=== PATIENT | female | born 1935 | race Caucasian/White ===

== ENCOUNTER → 2018-12-08 | Outpatient (CLI) | payer MEDICARE, OTHER ==
--- NOTE | 2018-12-08 14:23 | XR ---
EXAMINATION TYPE: XR chest 2V DATE OF EXAM: 12/08/2018 COMPARISON: NONE TECHNIQUE: PA and lateral views submitted. HISTORY: Shortness of breath FINDINGS: The lungs are clear and there is no pneumothorax, pleural effusion, or focal pneumonia. There is a retrocardiac air density which may be related to a large hiatal hernia. Numerous compression fracture s, diffuse osteopenia and degenerative changes of the visualized vertebral column. Surgical clips are seen in the abdomen. No overt failure. Biapical pleural thickening. IMPRESSION: 1. No acute process.
[2018-12-08 16:04] LABS: Albumin 4.5 g/dL (3.5-5.0); Calcium 10.2 mg/dL (8.4-10.2); Potassium 4.1 mmol/L (3.5-5.1); Total Protein 7.5 g/dL (6.3-8.2)
== END | disposition home or self-care (01) ==
LOC: RADXRMAIN 14:00
PROVIDERS: ATTEND Internal Medicine Interventional Cardiology
DX: R06.09 Other forms of dyspnea (principal)
CPT/HCPCS: 36415; 71046; 80053; 83880

== ENCOUNTER → 2019-04-07 | Outpatient (CLI) | payer MEDICARE, OTHER ==
[2019-04-07 11:10] VITALS: BP 164/70; PULSE 76; RESP 18
--- NOTE | 2019-04-07 14:15 | P.PAINCN ---
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, and 2014 patient had the radiofrequency thermocoagulation of the median branch lumbar area and she had good pain relief until July 2018, and from that time she started complaining of severe low back pain, she is able to ambulate using cane, she feels some weakness in the lower extremity bilaterally, but she is able to ambulate using a cane, she denies any change in the bowel movements or urination, she denies any fever or night sweats she denies any change in the bowel movements or urination, patient continued to use [place] 5/325 and CPD only and she had minimal benefit from the medication Past Medical History Past Medical History: Hyperlipidemia, Hypertension Additional Past Medical History / Comment(s): Angina; glaucoma; hx of GERD History of Any Multi-Drug Resistant Organisms: None Reported Past Surgical History: Cholecystectomy, Heart Catheterization, Hysterectomy Additional Past Surgical History / Comment(s): Dilitation of esophagus - 2011 Past Anesthesia/Blood Transfusion Reactions: No Reported Reaction Smoking Status: Never smoker Medications and Allergies Home Medications Medication Instructions Recorded Confirmed Type Aspirin EC [Ecotrin Low Dose] 81 tab PO DAILY 07/07/13 04/07/19 History Isosorbide Mononitrate [Imdur] 30 mg PO DAILY 07/07/13 04/07/19 History Acetaminophen [Tylenol] 325 mg PO Q4H PRN 04/05/19 04/07/19 History Atenolol 25 mg PO DAILY 04/05/19 04/07/19 History Atorvastatin [Lipitor] 10 mg PO DAILY 04/05/19 04/07/19 History Cannabidiol (Cbd) Extract 1 appful PO DIRECTED PRN 04/05/19 04/07/19 History [Epidiolex] Hydrocodone/Acetaminophen [[place] 0.5 tab PO Q6HR PRN 04/05/19 04/07/19 History 5-325] Allergies Allergy/AdvReac Type Severity Reaction Status Date / Time No Known Allergies Allergy Verified 02/10/20 15:13 Physical Exam Vitals: Vital Signs Pulse Resp BP Pulse Ox 04/07/19 11:02 76 18 164/70 95 REVIEW OF ORGAN SYSTEMS: CONSTITUTIONAL: No fevers or chills. No recent weight loss. EYES: denies troubles with vision. HEENT: No difficulties with hearing. No nosebleeds. No difficulty swallowing. RESPIRATORY: Denies any troubles with breathing or dyspnea on exertion. CARDIOVASCULAR: Denies any chest pain, palpitations, or recent heart attacks. GASTROINTESTINAL: Denies fatty food intolerance. Has change in bowel habits and gas bloat. GENITOURINARY: Denies any blood in urine. Has increased urinary frequency. NEUROLOGICAL: Low back pain , No seizure disorders or headaches. MUSCULOSKELETAL: Has back pain. SKIN:no skin cancer. No rash. PSYCHIATRIC: Denies current depression or suicidal thoughts. ENDOCRINE: Denies current thyroid disorders. Denies any blood sugar glucose intolerance. HEME/LYMPHATIC: Denies any lumps and bumps around the neck. History of deep venous thrombosis. ALLERGY/IMMUNOLOGY: No immunoglobulin therapy. No immune deficiencies. BREAST: Denies current breast lumps, pain or nipple discharge. Physical Examinations : Constitutiona : Cooperative , not in acute distress . HEENT : nech : supple , no Lymphadenopathy , normal thyroid size . : eyes no ptosis , no icterus, no photophobia . : ENT normal of hearing , normal oropharynx , no Thrush . Respiratory : Chest clear to auscultations Bilaterally , no wheezing , no Rhonchi . Cardiovascula : regular rate and rhythem , S1 , S2 , no S3 , no S4. Gastrointestina : abdomen soft no tenderness , bowel sounds , no organomegally . Genitourinary : Defferred . neurologic : Cranial nerve II to XII intact , no focal neurological deffecit . psychatric : alert , oriented X 3 , appropriate affect , intact judgment and insight . Lymphatic : no Lymphadenopathy . musculoskeltal : Lumber spine moter stegnth lower extremities ,thigh and legs 4/5 Right side , 4/5 Left side deep tendon reflexes : normal Knee Jerk , normal ankle Jerk lumber facet Loading Test= positive Right , positive Left Range of motion of the lumbar spine Flexion 30 degrees, extension 10 degrees strait leg raising test = negative bilaterally Fabere test= negative bilaterally Sever tenderness over the Sacroiliac joint on the Right , and Left sides Multiple trigger points identified in the lumbar paraspinal muscles bilaterally. Results Comments: MRI of the lumbar spine= multiple compression fractures in the lumbar spine, lumbar degenerative disc disease Assessment and Plan Plan: Assessment and plan= chronic severe low back pain secondary to multifactorial causes 1-lumbar degenerative disc disease. 2-lumbar compression fractures. 3-lumbar spondylosis with lumbar facet arthropathy. 4-bilateral sacroiliitis. 5-myofascial pain syndrome and lumbar paravertebral muscles. 6-failed Back surgery syndrome and lumbar area. Patient could benefit from caudal epidural steroid injections under fluoroscopy guidance and the same time can do trigger point injection lumbar paraspinal muscles(multiple ) Time with Patient: Greater than 30 PQRS Measure Charge Sheet Measure #130: Documentation of Current Meds in Medical Chart: Patient's medications documented in chart Measure #226: Tobacco Use: Screen & Cessation Intervention: Pt not a tobacco user Measure #111: Pneumonia Vaccination: Pneumococcal vaccine administered or previously received Measure #47: Advance Care Plan: Advance care planning discussed & documented, pt chose/unable to give Measure #412: Opioid Treatment Agreement: No documentation of signed opioid treatment agreement Measure #408: Opioid Therapy Follow-up Evaluation: Patient had NO f/u eval minimum every 3 months during opioid therapy Measure #317: Preventitive Care & Scrn High Bld Press & F/U: Pre-hypertensive or hypertensive BP documented, pt will f/u with PCP Measure #128: Body Mass Index (BMI) Screening & Follow-up: BMI documented within normal parameters Measure #131: Pain Assessment & Follow-up: Pain positive & plan documented, Follow-up scheduled Measure #431: Unhealthy Alcohol Use Preventative Care & Scrn: Patient not identified as an unhealthy alcohol user PQRS Narrative: Smoking Status Never smoker Narcotic Agreement Date Signed 07/21/13 Blood Pressure 164/70 Pain Intensity [Back] 6 Scale Used Numeric (1 - 10) Home Medications: Ambulatory Orders Aspirin EC [Ecotrin Low Dose] 81 tab PO DAILY 07/07/13 Isosorbide Mononitrate [Imdur] 30 mg PO DAILY 07/07/13 Acetaminophen [Tylenol] 325 mg PO Q4H PRN 04/05/19 Atenolol 25 mg PO DAILY 04/05/19 Atorvastatin [Lipitor] 10 mg PO DAILY 04/05/19 Cannabidiol (Cbd) Extract [Epidiolex] 1 appful PO DIRECTED PRN 04/05/19 Hydrocodone/Acetaminophen [[place] 5-325] 0.5 tab PO Q6HR PRN 04/05/19
== END | disposition home or self-care (01) ==
LOC: PNWHC3 10:49
PROVIDERS: ATTEND Specialist
DX: G89.29 Other chronic pain (principal); M51.36 Other intervertebral disc degeneration, lumbar region; M47.816 Spondylosis without myelopathy or radiculopathy, lumbar region; M46.96 Unspecified inflammatory spondylopathy, lumbar region; M48.56XA Collapsed vertebra, not elsewhere classified, lumbar region, initial encounter for fracture; M46.1 Sacroiliitis, not elsewhere classified; M79.18 Myalgia, other site; M96.1 Postlaminectomy syndrome, not elsewhere classified; Z79.82 Long term (current) use of aspirin; Z79.899 Other long term (current) drug therapy
CPT/HCPCS: 99211

== ENCOUNTER → 2019-04-13 | Day surgery (SDC) | payer MEDICARE, OTHER ==
[2019-04-09 11:05] VITALS: BMI 24.3
[~2019-04-13] MED LIST: BUPIVACAINE (PF) 0.5% 30 ML VIAL ONE; IOPAMIDOL M200 10 ML VIAL ONE; IV FLUID CONTINUATION 1,000 ML IV ONE; LACTATED RINGERS 1,000 ML IV ONE; LIDOCAINE 1% 20 ML VIAL (10MG/ML) FOR IV START INTRADERMA ONE; MIDAZOLAM 2 MG/2 ML VIAL ONE; fentaNYL (PF) 50 MCG/ML 2 ML AMP ONE; methylPREDNISolone ACETATE 40 MG/ML 1 ML VIAL ONE
[2019-04-13 10:16] VITALS: TEMP 97.9
--- NOTE | 2019-04-13 10:24 | P.PCN ---
Date of Procedure: 04/13/19 Description of Procedure: PREOP DIAGNOSIS: Lumbar radiculopathy POSTOP DIAGNOSIS: Lumbar radiculopathy PROCEDURE: Caudal epidural steroid injection with epidurolysis and epidurogram under fluoroscopic guidance Imaging: Fluoroscopy was used, images where saved to the medical record ANESTHESIA: Local with 1% lidocaine 5 ml ; IV sedation with versed and fentanyl PROCEDURE INDICATION: The patient with post-laminectomy syndrome with low back pain and radiculopathy radiating down in both legs, here for a caudal epidural steroid injection with epidurolysis. PROCEDURE DESCRIPTION: The patient was seen and identified in the preoperative area. Risks, benefits, complications, and alternatives were discussed with the patient. The patient agreed to proceed with the procedure and signed the consent. IV was started, and vital signs were stable. Patient was taken to the OR and time out was completed. The patient was placed in the prone position on procedure table and a pillow was placed under the abdomen to reduce lumbar lordosis. The lumbosacral area was prepped and draped in the usual sterile fashion. Vital signs were closely monitored during the procedure. Lateral view and the anterior-posterior plates of the sacrum were identified with infiltration of the area overlying the sacral hiatus with 1% lidocaine. A 17 gauge epidural needle was used to advance through the sacral hiatus into the caudal epidural space. Omnipaque 180 dye 2cc was injected and the position of the needle was verified to be in the midline. A Racz catheter was introduced into the epidural space and was advanced towards the L5-S1 interspace under direct fluoroscopic guidance. Multiple passes were made with the catheter for lysis of epidural adhesions avoiding parasthesia and significant resistance. After epidurolysis was complete, 2cc of contrast dye was again used to evaluate spread of contrast. Contrast was spreading beyond the original level prior to epidurolysis to the level of the L4-L5 level. After negative aspiration, I injected a solution consisting of 40mg of Depo- Medrol, 2ml of Preservative free normal saline and 2ml of ropivacaine 0.5% for a total of 5ml. Additional spread was seen to L4-L5 under fluoroscopy. The needle and the catheter were withdrawn intact. Epidurogram findings: Omnipaque 180 mg dye 2 ml was injected with spread of the dye into the caudal epidural space and with spread cutoff at L5 prior to epidurolysis. Post epidurolysis dye 2 ml was injected and spread was seen to the L4-L5 level COMPLICATIONS: None. DISPOSITION / PLANS: The patient was placed in a supine position and transferred to the recovery area in a stable condition for observation and was discharged from the recovery room after meeting discharge criteria. Home discharge instructions given to the patient by the staff. The patient was reexamined prior to discharge. The patient will schedule a follow up as directed
--- NOTE | 2019-04-13 10:26 | P.PCN ---
Date of Procedure: 04/13/19 Description of Procedure: Preoperative Diagnosis: myofascial pain syndrome of the lumbar spine Postoperative diagnosis: Same Anesthesia: Local Surgeon: Rissa Sylvester MD Indications for procedure: This is a 83-year-old patient with myofascial pain and palpable trigger points in the lumbar muscles. The patient consents for an injection after an explanation of risks including but not limited to bleeding and infection, benefits, and alternatives and the patient has signed a consent form indicating understanding of all of them. Description of procedure: After informed consent was obtained the patient's painful area was sterilely prepped in the usual fashion with ChloraPrep. Lumbar trigger points were identified via palpation of the lumbar paraspinal muscles and marked sterilely. Each trigger point was injected with a 25-gauge one and a half inch needle. At that point a solution consisting of 9ml of 0.5% ropivacaine was distributed evenly over the trigger points. The patient's vital signs were stable afterwards and the procedure was tolerated well. Patient was discharged home with follow-up instructions.
[2019-04-13 11:06] VITALS: RESP 20
[2019-04-13 11:15] VITALS: BP 134/67; PULSE 60
--- NOTE | 2019-04-13 11:29 | FL ---
EXAMINATION TYPE: FL guided pain mgmt statistic DATE OF EXAM: 04/13/2019 HISTORY: Fluoroscopy time 5 seconds of fluoroscopy provided. IMPRESSION: 1. Fluoroscopy time.
== END ==
LOC: ORPAIN 09:38
PROVIDERS: ATTEND Hospitalist
DX: G89.29 Other chronic pain (principal); M79.18 Myalgia, other site; M54.16 Radiculopathy, lumbar region; M96.1 Postlaminectomy syndrome, not elsewhere classified; Z79.899 Other long term (current) drug therapy; I10 Essential (primary) hypertension; E78.5 Hyperlipidemia, unspecified; H40.9 Unspecified glaucoma; K21.9 Gastro-esophageal reflux disease without esophagitis; G96.12 Meningeal adhesions (cerebral) (spinal); Z90.49 Acquired absence of other specified parts of digestive tract; Z90.710 Acquired absence of both cervix and uterus; Z98.890 Other specified postprocedural states; Z79.82 Long term (current) use of aspirin; Z79.891 Long term (current) use of opiate analgesic
CPT/HCPCS: 62323; 20553; 62264; J2250; J1030; J3010; Q9966; 99152

== ENCOUNTER → 2019-08-11 | Outpatient (CLI) | payer MEDICARE, OTHER ==
[2019-08-11 13:00] VITALS: BP 148/79; PULSE 52; RESP 18; TEMP 97.8
--- NOTE | 2019-08-11 13:20 | P.PAINPG ---
Subjective Progress Note Date: 08/11/19 This is an 83 year old female with a history of chronic low back pain, she was diagnosed with lumbar spondylosis with lumbar facet arthropathy, multiple compression fractures. She was last seen in our clinic in March 2019, at which point she underwent caudal epidural steroid injection with lysis of ad hesions along with trigger point injections to the lumbar paraspinal muscles. She returns today for follow-up. He reports excellent pain relief from this procedure, lasting 2-3 months. Of note, in 2014 patient had radiofrequency thermocoagulation of the medial branch lumbar area and she had good pain relief until July 2018. Patient continues to use Tylenol and CBD oil . Today, her pain is primarily located in the low back, left greater than right, radiating to bilateral lower extremitiesposterior aspect. Pain is rated as 5/10 today and stop pain is worse with laying for long periods of time and better with getting up and walking. She continues to use a wheeled walker. She is interested in having a procedure repeated. Review of systems is negative for chest pain, shortness of breath, new onset weakness, numbness/tingling, abdominal pain, malaise, fever, night sweats, chills, homicidal or suicidal ideation, or bowel or bladder incontinence. Physical exam: Vitals: Reviewed in EMR GENERAL: Well appearing, in no acute distress, seated in wheelchair PSYCH: Mood and affect is appropriate. Awake, alert, and oriented SKIN: Skin color, texture, turgor normal, no rashes or lesions HEENT: Normocephalic, atraumatic. EOM intact CV: No pedal edema RESP: Respirations are unlabored, no audible wheezing GI: Abdomen non-distended MUSCULOSKELETAL: Bilateral lower extremity strength is normal and symmetric. No atrophy or tone abnormalities are noted. Lumbar spine: Straight leg raising in the sitting position is positive on the left side for radicular pain. Tenderness pain to palpation over the lumbar spine and paraspinous muscles, with palpable trigger points bilaterally. Buttocks: No pain to palpation over the PSIS Extremities: Peripheral joint ROM is full and pain free without obvious instability or laxity in all four extremities. No edema or skin discolorations noted. NEUR: No loss of sensation is noted. Results Comments: MRI of the lumbar spine= multiple compression fractures in the lumbar spine, lumbar degenerative disc disease Assessment and Plan Plan: Assessment and plan= chronic severe low back pain secondary to multifactorial causes 1-lumbar degenerative disc disease. 2-lumbar compression fractures. 3-lumbar spondylosis with lumbar facet arthropathy. 4-bilateral sacroiliitis. 5-myofascial pain syndrome and lumbar paravert ebral muscles. Patient could benefit from repeat caudal epidural steroid injections under fluoroscopy guidance and trigger point injection lumbar paraspinal muscles(multiple ) PQRS Measure Charge Sheet PQRS Narrative: Smoking Status Never smoker Narcotic Agreement Date Signed 07/21/13 Pain Intensity [Back] 9 Scale Used Numeric (1 - 10) Home Medications: Ambulatory Orders Aspirin EC [Ecotrin Low Dose] 81 tab PO DAILY 07/07/13 Isosorbide Mononitrate [Imdur] 30 mg PO DAILY 07/07/13 Acetaminophen [Tylenol] 325 mg PO Q4H PRN 04/05/19 Atenolol 25 mg PO DAILY 04/05/19 Atorvastatin [Lipitor] 10 mg PO DAILY 04/05/19 Cannabidiol (Cbd) Extract [Epidiolex] 1 appful PO DIRECTED PRN 04/05/19 Lidocaine 1 patch TOPICAL DAILY PRN 08/05/19 Controlled Substance Measures - Controlled Substance Measures Is patient prescribed a controlled substance at discharge?: No
== END | disposition home or self-care (01) ==
LOC: PNWHC3 12:42
PROVIDERS: ATTEND Anesthesiology
DX: G89.29 Other chronic pain (principal); M51.36 Other intervertebral disc degeneration, lumbar region; M47.816 Spondylosis without myelopathy or radiculopathy, lumbar region; M46.96 Unspecified inflammatory spondylopathy, lumbar region; M46.1 Sacroiliitis, not elsewhere classified; M79.18 Myalgia, other site; S32.009A Unspecified fracture of unspecified lumbar vertebra, initial encounter for closed fracture; Z98.890 Other specified postprocedural states; Z79.82 Long term (current) use of aspirin; Z79.899 Other long term (current) drug therapy
CPT/HCPCS: 99211

== ENCOUNTER 2019-08-19 09:59 | Day surgery (SDC) | payer MEDICARE, OTHER ==
[2019-08-18 11:14] VITALS: BMI 23.2
[~2019-08-19 09:59] MED LIST changes: -BUPIVACAINE (PF) 0.5% 30 ML VIAL ONE; -IOPAMIDOL M200 10 ML VIAL ONE; -IV FLUID CONTINUATION 1,000 ML IV ONE; -LACTATED RINGERS 1,000 ML IV ONE; +LACTATED RINGERS 1,000 ML IV SCH; -LIDOCAINE 1% 20 ML VIAL (10MG/ML) FOR IV START INTRADERMA ONE; -MIDAZOLAM 2 MG/2 ML VIAL ONE; -fentaNYL (PF) 50 MCG/ML 2 ML AMP ONE; -methylPREDNISolone ACETATE 40 MG/ML 1 ML VIAL ONE
[2019-08-19 10:28] VITALS: RESP 16; TEMP 98.8
[2019-08-19] MEDS ORDERED: LIDOCAINE 1% (10MG/ML) FOR IV START INTRADERMA ONE (10:43)
[2019-08-19] MEDS ORDERED: ROPIVACAINE 5MG/ML 20ML VIAL ONE (10:54)
[2019-08-19] MEDS ORDERED: IOPAMIDOL M200 10 ML VIAL ONE (10:54)
[2019-08-19] MEDS ORDERED: methylPREDNISolone ACETATE 40 MG/ML 1 ML VIAL ONE (10:54)
[2019-08-19] MEDS ORDERED: MIDAZOLAM 2 MG/2 ML VIAL ONE (10:54)
--- NOTE | 2019-08-19 11:20 | P.PCN ---
Date of Procedure: 08/19/19 Procedure(s) Performed: PREOPERATIVE DIAGNOSIS: 1- Lumbar Degenerative Disc Diseases 2-Lumbar spondylosis with Facet arthropathy without myelopathy 3-myofascial pain syndrome ,lumbar paraspinal muscles. POSTOPERATIVE DIAGNOSIS: 1-Lumber Degenerative Disc Diseases 2-Lumbar spondylosis with Facet arthropathy without myelopathy. 3-myofascial pain syndrome lumbar paraspinal muscles PROCEDURE 1. Lumbar epidural steroid injection under fluoroscopic guidance at the L5-S1 level. (Fluoroscopy imaging was available in radiology department) 2. Lumbar epidurogram. 3. Trigger point injection lumbar paraspinal muscles 3 on the right side, and 3 on the left side, lumbar paraspinal muscles ANESTHESIA: Local with 1% lidocaine 3 ml and , moderate sedation with intravenous Versed 1 mg . EBL: Minimal PROCEDURE INDICATION: The patient with low back pain and radiculitis symptoms unresponsive to conservative treatment. Fluoroscopy was used to optimize visualization of the needle placement and to maximize safety. PROCEDURE DESCRIPTION / TECHNIQUE: The patient was seen and identified in the preoperative area. Risks, benefits, complications including but not limited to infections ,bleeding ,allergic reaction to the medications ,nerve damage and not complete pain releife , and alternatives were discussed with the patient. The patient agreed to proceed with the procedure and signed the consent. IV was started, and vital signs were stable. Patient was taken to the OR and time out was completed. The patient was placed in the prone position on procedure table and a pillow was placed under the abdomen to reduce lumbar lordosis. The lumbosacral area was prepped and draped in the usual sterile fashion.ere closely monitored during the procedure. Conscious sedation was used during the procedure to decrease patients anxiety. Vital signs was monitered during the entire procedure. Using anterior-posterior fluoroscopy, the L5-S1 interlaminar space was identified and the skin over this site was marked and then infiltrated with 1% lidocaine subcutaneously. Subsequently, a 20-gauge Tuohy epidural needle was inserted and advanced toward the epidural space using the ``Loss of resistance technique and guided by AP and lateral fluoroscopy. The correct needle position in the epidural space was verified with the injection of 2 mL of the water soluble contrast dye Isovue 200 contrast and observing an excellent epidurogram with the epidural spread of the dye, after negative aspiration for blood and CSF and in the absence of paresthesias. Again after negative aspiration, a 6 ml mixture containing 40 mg of Depo-medrol , and 2 ml of preservative free Normal Saline, and 2 ml of preservative free lidocaine 1% solution was injected and a washout of epidurogram was seen. Needle was withdrawn intact, Then after that the trigger point injections done sterile technique using 25- gauge needles, each of the trigger points injected with bupivacaine 0.5% 2 mL injected at each trigger point after negative aspiration to a total of 3 trigger point injected on the right side lumbar paraspinal muscles and 3 on the left side lumbar paraspinal muscles, injections done after negative aspiration and there was no paresthesia during the injection, patient tolerated the procedure well without any complications COMPLICATIONS: None DISPOSITION / PLANS: The patient was placed in a supine position and transferred to the recovery area in a stable condition for observation. There was no evidence of lower extremity motor or sensory deficit after the procedure. Patient was discharged from the recovery room after meeting discharge criteria. Home discharge instructions were given to the patient by the staff. The patient was reexamined prior to discharge. The patient will schedule a follow up in the clinic in 2-4 weeks.
[2019-08-19] MEDS ORDERED: IV FLUID CONTINUATION 700 ML IV ONE (11:27)
[2019-08-19 11:43] VITALS: BP 143/69; PULSE 67
--- NOTE | 2019-08-19 13:09 | FL ---
EXAMINATION TYPE: FL guided pain mgmt statistic DATE OF EXAM: 08/19/2019 HISTORY: Fluoroscopy time 2 seconds of fluoroscopy provided. IMPRESSION: 1. Fluoroscopy time.
== END 2019-08-19 12:03 | disposition home or self-care (01) ==
LOC: ORPAIN 09:59
PROVIDERS: ATTEND Specialist
DX: M47.26 Other spondylosis with radiculopathy, lumbar region (principal); M79.18 Myalgia, other site; M51.16 Intervertebral disc disorders with radiculopathy, lumbar region; M96.1 Postlaminectomy syndrome, not elsewhere classified; I10 Essential (primary) hypertension
CPT/HCPCS: 20553; 62323; J2250; J1030; Q9966; J2795

== ENCOUNTER → 2019-09-08 | Outpatient (CLI) | payer MEDICARE, OTHER ==
[2019-09-08 14:06] VITALS: BP 145/76; PULSE 59; RESP 16
--- NOTE | 2019-09-08 14:22 | P.PAINPG ---
Subjective Progress Note Date: 09/08/19 This is a follow-up visit for this 84 years old female with a chronic history of severe low back pain she is diagnosed with lumbar degenerative disc disease lumbar spondylosis with lumbar facet arthropathy, and myofascial pain syndrome lumbar area we did a lumbar epidural steroid injection a few weeks ago on a trigger point injection lumbar paraspinal muscles, she reported that her pain improved significantly and she is not using any pain medication. Occasion she use Tylenol when necessary, she had the minimal to no pain all the time, she denies any fever or night sweats which she denies any change in the bowel movement or urination Objective - Vital Signs Vital signs: Vital Signs Temp Pulse 59 L 09/08/19 14:01 Resp 16 09/08/19 14:01 BP 145/76 09/08/19 14: Pulse Ox 94 L 09/08/19 14:01 - Exam Physical Examinations : -Constitutiona : Cooperative , not in acute distress . -HEENT : nech : supple , no Lymphadenopathy , normal thyroid size . : eyes : no ptosis , no icterus, no photophobia . - neurologic : Cranial nerve II to XII intact , no focal neurological deffecit . -psychatric : alert , oriented X 3 , appropriate affect , intact judgment and insight . -Lymphatic : no Lymphadenopathy . - musculoskeltal : Wheelchair bound. Assessment and Plan Plan: Assessment and plan= lumbar spondylosis with lumbar facet arthropathy. Lumbar degenerative disc disease. Myofascial pain syndrome lumbar paraspinal muscles. Pain improved after lumbar epidural steroid injection and noted upon injection lumbar paraspinal muscles She will follow up in the pain clinic when necessary Time with Patient: Less than 30 PQRS Measure Charge Sheet Measure #130: Documentation of Current Meds in Medical Chart: Patient's medications documented in chart Measure #226: Tobacco Use: Screen & Cessation Intervention: Pt not a tobacco user Measure #111: Pneumonia Vaccination: Pneumococcal vaccine administered or previously received Measure #47: Advance Care Plan: Advance care planning discussed & documented, pt chose/unable to give Measure #412: Opioid Treatment Agreement: No documentation of signed opioid treatment agreement Measure #408: Opioid Therapy Follow-up Evaluation: Patient had NO f/u eval minimum every 3 months during opioid therapy Measure #317: Preventitive Care & Scrn High Bld Press & F/U: Pre-hypertensive or hypertensive BP documented, pt will f/u with PCP Measure #128: Body Mass Index (BMI) Screening & Follow-up: BMI documented within normal parameters Measure #131: Pain Assessment & Follow-up: Pain positive & plan documented, Follow-up scheduled Measure #431: Unhealthy Alcohol Use Preventative Care & Scrn: Patient not identified as an unhealthy alcohol user PQRS Narrative: Smoking Status Never smoker Narcotic Agreement Date Signed 07/21/13 Blood Pressure 145/76 Pain Intensity [Lower Back] 3 Scale Used Numeric (1 - 10) Home Medications: Ambulatory Orders Aspirin EC [Ecotrin Low Dose] 81 tab PO HS 07/07/13 Isosorbide Mononitrate [Imdur] 30 mg PO DAILY 07/07/13 Acetaminophen [Tylenol] 325 mg PO Q4H PRN 04/05/19 Atenolol 25 mg PO DAILY 04/05/19 Atorvastatin [Lipitor] 10 mg PO DAILY 04/05/19 Cannabidiol (Cbd) Extract [Epidiolex] 1 appful PO DIRECTED PRN 04/05/19 Ascorbic Acid [Vitamin C] 500 mg PO DAILY 08/18/19 Cholecalciferol (Vitamin D3) [Vitamin D3] 50 mcg PO DAILY 08/18/19 Lidocaine [Lidoderm 5% Patch] 1 patch TRANSDERM DAILY PRN 08/18/19 Vitamin E 450 unit PO DAILY 08/18/19 Controlled Substance Measures - Controlled Substance Measures Is patient prescribed a controlled substance at discharge?: No
== END | disposition home or self-care (01) ==
LOC: PNWHC3 13:04
PROVIDERS: ATTEND Specialist
DX: M51.36 Other intervertebral disc degeneration, lumbar region (principal); M47.816 Spondylosis without myelopathy or radiculopathy, lumbar region; M46.96 Unspecified inflammatory spondylopathy, lumbar region; M79.18 Myalgia, other site; Z79.891 Long term (current) use of opiate analgesic; Z79.899 Other long term (current) drug therapy; Z79.82 Long term (current) use of aspirin
CPT/HCPCS: 99211